=== PATIENT | male | born 1965 | race African-American/Black ===

== ENCOUNTER 2022-11-15 14:04 | Emergency (ER) | payer SELFPAY ==
[2022-11-15] MEDS ORDERED: Ketorolac Tromethamine 30 MG/ML VIAL ONE (14:56)
== END 2022-11-15 15:00 | disposition home or self-care (01) ==
LOC: ERS 14:04
DX: L03.211 Cellulitis of face (principal)
CPT/HCPCS: 96372; 99283; J1885

== ENCOUNTER 2023-05-15 11:30 | Emergency (ER) | payer OTHER, SELFPAY ==
[2023-05-15] MEDS ORDERED: fentaNYL 50 mcg/mL 1 mL Vial ONE (11:42)
[2023-05-15 12:14] LABS: #Monocytes 0.7 thou/uL (0.11-0.59); #Neutrophils 5.3 thou/uL (1.40-6.50); %Basophils 0.3 % (0.0-1.0); %Eosinophils 0.6 % (0.0-10.0); %Lymphocytes 13.4 % (21.0-51.0); %Monocytes 10.1 % (0.0-10.0); %Neutrophils 74.9 % (42.0-75.0); Hematocrit 44.4 % (42.0-52.0); Hemoglobin 14.6 g/dL (14.0-18.0); Mean Corpuscular HGB CONC 32.9 g/dL (32.0-36.0); Mean Platelet Volume 13.3 fL (7.4-10.4); Platelet Count 136 10x3/uL (130-400); RBC Distribution Width 15.8 % (11.5-14.5); Red Blood Cell (RBC) Count 5.62 mill/uL (4.70-6.10)
[2023-05-15 12:29] LABS: PTT 27.9 sec (22.9-36.1); Prothrombin Time 13.5 sec (12.0-14.7)
[2023-05-15 12:39] LABS: Bacteria/HPF None Seen HPF (None Seen); Bilirubin Negative (Negative); Blood, Urine Negative (Negative); CAUTI Indications for Culture Pelvic or flank pain; Clarity Clear (Clear); Glucose, Urine (Dipstick) Normal (Negative); Ketone, Urine Negative (Negative); Leukocyte Negative Leu/uL (Negative); Nitrite Negative (Negative); Protein, Urine (Dipstick) 20 mg/dL (Neg-Trace); RBC/HPF 0-3 HPF (0-3); Squamous Epithelial 0-3 HPF (0-3); Urobilinogen Normal mg/dL (Less than 2); WBC/HPF 0-3 HPF (0-3)
[2023-05-15 12:40] LABS: Urine Culture Reflex No No
[2023-05-15 12:40] LABS: ALT (SGPT) 19 U/L (8-55); AST (SGOT) 15 U/L (5-34); Albumin 3.8 g/dL (3.5-5.0); Alkaline Phosphatase 62 U/L (40-110); Anion Gap 11 mmol/L (10-20); BUN (Urea Nitrogen) 15 mg/dL (8.4-25.7); Bilirubin, Total 0.5 mg/dL (0.2-1.2); Calc. Creatinine Clearance 0 mL/min (70-130); Calcium 8.9 mg/dL (7.8-10.44); Carbon Dioxide 25 mmol/L (22-29); Chloride 105 mmol/L (98-107); Estimated GFR 75; Globulin 3.2 g/dL (2.4-3.5); Glucose 147 mg/dL (70-105); Lipase 18 U/L (8-78); Potassium 3.2 mmol/L (3.5-5.1); Sodium 138 mmol/L (136-145)
[2023-05-15] MEDS ORDERED: Iopamidol-370 76% 500 ML MDV (1 ML CHARGE) ONE (14:28)
== END 2023-05-15 13:24 | disposition home or self-care (01) ==
LOC: ERS 11:30
DX: M54.50 Low back pain, unspecified (principal); M54.6 Pain in thoracic spine; M25.512 Pain in left shoulder; M25.511 Pain in right shoulder; F17.210 Nicotine dependence, cigarettes, uncomplicated; V69.60XA Unspecified occupant of heavy transport vehicle injured in collision with unspecified motor vehicles in traffic accident, initial encounter
CPT/HCPCS: 36415; 70450; 71045; 71260; 72125; 74177; 80053; 81001; 83605; 83690; 85025; 85610; 85730; 93005; 96374; J3010; Q9967

== ENCOUNTER 2023-05-18 07:43 | Emergency (ER) | payer SELFPAY ==
[2023-05-18] MEDS ORDERED: Cyclobenzaprine 10 MG TAB ONE (09:26)
[2023-05-18] MEDS ORDERED: Ketorolac Tromethamine 30 MG/ML VIAL ONE (09:26)
== END 2023-05-18 10:16 | disposition home or self-care (01) ==
LOC: ERS 07:43
DX: M25.532 Pain in left wrist (principal); M25.562 Pain in left knee; F17.210 Nicotine dependence, cigarettes, uncomplicated
CPT/HCPCS: 96372; J1885